=== PATIENT | female | born 1970 | race Caucasian/White ===

== ENCOUNTER 2017-12-14 09:59 | Observation (INO) ==
[~2017-12-14 09:59] MED LIST: ATROPINE SULFATE 0.4 MG/1 ML VIAL IVP PRN; Acetaminophen 1000mg Inj 1,000 MG/100 ML VIAL IV ONE; CefOXitin Inj 2 GM in Sodium Chloride 0.9% 100 ML IV ONE; IPRATROPIUM/ALBUTEROL SULFATE 3 ML NEB NEB PRN; LIDOCAINE W/ SODIUM BICARB 0.5 ML SYR ONE; LIDOCAINE W/ SODIUM BICARB 0.5 ML SYR SUBD ONE; LIDOCAINE W/ SODIUM BICARB 0.5 ML SYR SUBD PRN; Lactated Ringers 1,000 ML PRIMARY IV ONE; Nasal Sanitizer POPSWAB ampule 3 AMP (Nozin) PREOP DOSE ENOS SCH; ONDANSETRON 4 MG/2 ML VIAL IVP PRN; Ondansetron ODT Tab 8 MG TAB PO PRN; ROCURONIUM 10 MG/1 ML - 5 ML VIAL IVP ONE; SCOPOLAMINE HYDROBROMIDE 1.5 MG - 1 EACH PATCH TRANSDERM ONE; Sodium Chloride 0.9% 100 ML IV ONE
[2017-12-14] MEDS: Lactated Ringers 1,000 ML PRIMARY IV SCH ×4 (10:09→20:49)
[2017-12-14 10:32] LABS: Hematocrit [HCT] 42.3 % (37.0-47.0); Hemoglobin [HGB] 14.8 g/dL (12.0-16.0)
[2017-12-14] MEDS ORDERED: IPRATROPIUM/ALBUTEROL SULFATE 3 ML NEB NEB ONE (11:01)
[2017-12-14 11:30] LABS: BILIRUBIN,URINE NEGATIVE (NEG); CLARITY,URINE CLEAR (CLEAR); COLOR,URINE YELLOW (Y); GLUCOSE, URINE (UA) NEGATIVE (NEG); PROTEIN,URINE NEGATIVE (NEG); UROBILINOGEN,URINE 0.2 EU/dL (0.2)
[2017-12-14] MEDS ORDERED: MIDAZOLAM HCL 2 MG/2 ML VIAL ONE (11:30)
[2017-12-14] MEDS ORDERED: SUFENTANIL 50 MCG/1 ML ONE (11:30)
[2017-12-14] MEDS ORDERED: KETAMINE 100 MG/1 ML - 5 ML ONE (11:30)
[2017-12-14] MEDS ORDERED: PROPOFOL 10 MG/1 ML (200 MG/20 ML) VIAL IV ONE (11:31)
[2017-12-14] MEDS ORDERED: Sodium Chloride 0.9% vial 10 ML ONE (11:32)
[2017-12-14 11:33] LABS: OCCULT BLOOD,URINE TRACE (NEG); URINE SAMPLE TYPE CLEAN CATCH URINE
[2017-12-14 11:34] LABS: RBC,URINE 0-1 /hpf; SQUAMOUS EPITHELIAL CELL,UR FEW
[2017-12-14] MEDS ORDERED: LIDOCAINE HCL 2 % 10 ML JELLY URO-JECT TOPICAL ONE (11:38)
[2017-12-14] MEDS ORDERED: BUPIVACAINE 0.5% W/EPI MPF -30 ML VIAL IV ONE (11:38)
[2017-12-14] MEDS ORDERED: ESMOLOL HCL 100 MG/10 ML VIAL ONE (12:18)
[2017-12-14] MEDS ORDERED: Hetastarch 6% + NS 500 ML IV ONE (12:19)
[2017-12-14] MEDS ORDERED: Opium-Belladonna 30-16.2mg 1 EACH SUPP.RECT RECTAL ONE ×2 (12:59→13:03)
[2017-12-14] MEDS ORDERED: Lactated Ringers 2,000 ML PRIMARY IV ONE (13:09)
[2017-12-14] MEDS ORDERED: BUPivacaine 0.5%/Epi Inj 50 ML VIAL ONE (13:09)
[2017-12-14] MEDS ORDERED: KETOROLAC 30 MG/1 ML VIAL ONE (13:13)
[2017-12-14] MEDS ORDERED: DEXAMETHASONE PF 10 MG/1 ML VIAL ONE (13:18)
[2017-12-14] MEDS ORDERED: ONDANSETRON 4 MG/2 ML VIAL ONE (13:18)
[2017-12-14] MEDS ORDERED: Ondansetron ODT Tab 8 MG TAB PO PRN (13:25)
[2017-12-14] MEDS ORDERED: LIDOCAINE HCL 2 % 10 ML JELLY URO-JECT TOPICAL PRN (13:25)
[2017-12-14] MEDS ORDERED: IBUPROFEN 800 MG TABLET PO PRN (13:25)
--- NOTE | 2017-12-14 13:33 | OB.OP.NOTE ---
Operative Report Surgeon: Dr. Massey Carpenter: Valdo Baltazar MD Anesthesia Type: General Anesthesia Provider: Venus Michaels CRNA Surgery Date: 12/14/17 Preoperative Diagnosis: Fibroid Uterus, CPP, FLAKO Postoperative Diagnosis: Same Procedure: da Toro Hysterectomy/BSO/TVT-O/Cystoscopy Estimated Blood Loss (mL): 175 Fluids: 3500 ml Complications: None identified Findings at Surgery: Slightly enlarged uterus with a subserosal fibroid on the left anterior aspect of the uterus. Normal tubes. Normal left ovary. The right ovary contained a 3 cm apparent corpus luteum cyst. Good placement of the TVT mesh without tension was noted. No visible evidence of bowel, bladder, or ureter injury. At cysto, both ureters ejected urine and the bladder was intact. Indications for the Procedure: Fibroids, CPP, FLAKO Description of Procedure: See dictated operative report. Plan: Routine post op care and discharge to home.
[2017-12-14] MEDS ORDERED: SUGAMMADEX SODIUM 200 MG/2 ML VIAL IV ONE (13:48)
[2017-12-14] MEDS: HYDROmorphone 2 MG/1 ML IVP PRN ×4 (14:00→17:14)
[2017-12-14] MEDS ORDERED: HYDROmorphone 2 MG/1 ML ONE ×2 (14:01→17:17)
--- NOTE | 2017-12-14 14:19 | CRNA.PROGR ---
Anesthesia Time - Procedure/Recovery Time Start Date: 12/14/17 End Date: 12/14/17 Anesthesia : Time In: 11:48 Anesthesia : Time Out: 13:47 Anesthesia : Total Time: 119 - Total Anesthesia Time Total Anesthesia Time (minutes): 119 - Other Weight: 70.216 kg Height: 5 ft 3 in Body Mass Index (BMI): 27.4 Physical Status: P2 Anesthesia Type: General Anesthesia : ET
--- NOTE | 2017-12-14 14:19 | CRNA.PROGR ---
Anesthesia Recovery Phase I - Post Anesthesia Evaluation Patient's Condition on Arrival in Phase I: Stable Patient's Condition on Arrival in Phase II: Stable (Reversed in Phase 1 with Bridion.) Pain Level: 8
--- NOTE | 2017-12-14 14:20 | CRNA.PROGR ---
Post Anesthesia Phase II - Post Anesthesia Phase II Patient Stable and Discharged To: Phase II Care Assumed By Surgeon: Peng Massey MD Temperature: 97.2 F Pulse Rate: 58 Respiratory Rate: 14 Blood Pressure: 119/80 Pulse Ox: 98 Total Maggy Score at Discharge: 9 Post Anesthesia Discharge Criteria Met: Yes
[2017-12-14] MEDS: fentaNYL Inj 100 MCG/2 ML VIAL IVP PRN ×2 (14:21→14:28)
[2017-12-14] MEDS ORDERED: fentaNYL Inj 100 MCG/2 ML VIAL ONE (14:24)
[2017-12-14] MEDS ORDERED: oxyCODONE IR Tab 5 MG TAB PO PRN (14:44)
[2017-12-14] MEDS ORDERED: oxyCODONE IR Tab 5 MG TAB PO ONE ×2 (14:49)
[2017-12-14] MEDS ORDERED: HYDROmorphone 2 MG/1 ML IVP PRN (17:12)
[2017-12-14] MEDS: KETOROLAC 15 MG/1 ML VIAL IVP SCH (19:25)
[2017-12-14] MEDS: SUMAtriptan Tab 25 MG TAB PO PRN ×2 (19:25→21:44)
[2017-12-14] MEDS: oxyCODONE-ACETAMINOPHEN 5-325 TAB PO PRN ×2 (19:33→23:33)
[2017-12-14] MEDS ORDERED: Topiramate Tab 50 MG TAB PO ONE (20:00)
[2017-12-14] MEDS ORDERED: HYDROXYZINE PAMOATE 25 MG CAPSULE PO ONE (20:00)
[2017-12-14] MEDS ORDERED: PANTOPRAZOLE 40 MG TABLET PO ONE (21:28)
[2017-12-14] MEDS: DOCUSATE 100 MG CAPSULE PO SCH (21:36)
[2017-12-15] MEDS: KETOROLAC 15 MG/1 ML VIAL IVP SCH ×3 (01:59→13:47)
[2017-12-15] MEDS: oxyCODONE-ACETAMINOPHEN 5-325 TAB PO PRN ×4 (04:10→16:29)
[2017-12-15] MEDS: Lactated Ringers 1,000 ML PRIMARY IV SCH ×2 (04:12→14:13)
[2017-12-15 08:34] VITALS: RESP 20
[2017-12-15] MEDS: DOCUSATE 100 MG CAPSULE PO SCH (09:15)
--- NOTE | 2017-12-15 09:49 | PDOC(PROG) ---
Subjective Post Op Day: 1 Pain Management: PO Li Catheter: No Flatus: Yes Diet: Regular Ambulating: Yes Concerns / Additional Information: Pt. admitted overnight for observation due to pain control issues. She is feeling better this AM, but still requiring narcotic pain meds on schedule. She is voiding well, but feels like she isn't emptying her bladder. Discussed post op bladder sensation and voiding function. She was reassured. Assesstment / Plan Assessment / Plan: POD 1, doing well. Will see how the morning goes with her pain control. Plan discharge to home when she is ready.
--- NOTE | 2017-12-15 09:51 | DCSUMMARY ---
Hospitalization Summary Admit Date: 12/14/17 Discharge Date: 12/15/17 Primary Diagnosis:: Fibroid uterus, CPP Hospital Course: Uncomplicated robotic hyst/BSO, TVT-O. Pt. admitted for observation due to pain control issues. She was voiding well and was discharged to home on POD 1 in good condition. F/u 2 weeks. Exam - Vitals Vital Signs: Vital Signs Temperature 98.2 F Temperature Source Temporal Artery Scan Pulse Rate [Pulse Oximeter] 57 Pulse Rate 88 Respiratory Rate 20 Blood Pressure [Right Arm] 98/59 Blood Pressure 94/64 Pulse Ox 100 Oxygen Flow Rate 1 Oxygen Delivery Method Nasal Cannula Height 5 ft 3 in Weight 163 lb 8 oz
[2017-12-15 14:24] VITALS: BP 98/62; TEMP 98.5; O2SAT 96
== END 2017-12-15 16:50 | disposition home or self-care (01) ==
LOC: OR 09:59 → MED/SURG 09:59
PROVIDERS: ADMIT Obstetrics & Gynecology; ATTEND Obstetrics & Gynecology